=== PATIENT | male | born 1945 | race Caucasian/White ===

== ENCOUNTER 2021-10-07 12:09 | Observation (INO) | payer MEDICARE, OTHER, SELFPAY ==
[2021-10-07] VITALS (7 sets, daily range): BP systolic 132–155; BP diastolic 83–95; PULSE 68–91; RESP 16–18; TEMP 36.6–37; O2SAT 94–99; BMI 31.3; BMI 31.8
--- NOTE | 2021-10-07 13:01 | CRLHL7_ITS ---
For Patients: As a result of the 21st Century Cures Act, medical imaging exams and procedure reports are released immediately into your electronic medical record. You may view this report before your referring provider. If you have questions, please contact your health care provider. Indication: GI bleed, right flank pain Technique: Volumetric multidetector CT images of the abdomen and pelvis were obtained after the administration of intravenous contrast. 98 cc Isovue 370 low osmolar intravenous contrast Comparison: CT abdomen and pelvis April 07, 2018 Findings: There is dependent bibasilar atelectasis with calcified pleural plaques in the left lung base. The liver is mildly enlarged with mild appendix steatosis. There is no focal abnormality. The portal vein is patent. The gallbladder is unremarkable without evidence of radiopaque calculus. There is no significant common biliary ductal dilatation or abrupt cut off. There is a heterogeneous enhancement pattern of the spleen with questionable peripheral nodular enhancement which may represent a splenic hemangioma. There is mild to moderate chronic gastritis change with mild thickening of the gastric antrum. The pancreas is normal in enhancement without significant atrophy. There is demonstration of an exophytic solid mass arising from the left adrenal gland on series 2, image 39 measuring 1.9 centimeters in greatest dimension similar in size from comparison exam. The kidneys demonstrate moderate parapelvic cystic changes of the bilateral collecting systems with demonstration of mild prominence of the right collecting system and a 2.7 millimeter calculus just at the ureteral vesicular junction. There is moderate stool seen throughout the colon with distal colonic diverticulosis without definite evidence of diverticulitis. The appendix is unremarkable. There is no significant mesenteric, retroperitoneal, or pelvic sidewall lymph nodes. The aorta is not aneurysmal with minimal scattered atherosclerotic calcification. Markedly enlarged prostate gland with moderate prostatomegaly commensurate with prostatic hypertrophic changes. There is no free fluid or free air. Postoperative change of the anterior abdominal wall status post ventral hernia repair is appreciated with stable hernia mesh. The lumbar vertebral body heights are grossly maintained with moderate to severe degenerative disc disease with pedicle screws and posterior stabilization fixation changes of the L4 through S1 levels. Impression: Mild right-sided hydronephrosis and hydroureter with demonstration of a 2.7 millimeter calculus at the right ureteral vesicular junction. Moderate sigmoid diverticulosis without definite evidence of diverticulitis. Mild chronic gastritis change. Otherwise, no evidence of acute intra-abdominal abnormality. Please note that all CT scans at this facility use dose modulation, iterative reconstruction, and/or weight-based dosing when appropriate to reduce radiation dose to as low as reasonably achievable. Dictated by Jony Love MD @ 10/07/2021 3:01:41 PM (Electronically Signed)
--- NOTE | 2021-10-07 13:04 | ED.GENADULT ---
[facility] - General Adult General Date Seen: 10/07/21 Chief complaint: GI Bleed Stated complaint: Rectal bleeding Time Seen by Provider: 10/07/21 12:15 Source: patient and family History of Present Illness [facility] narrative: Patient is a 76-year-old male who presents for evaluation of GI bleeding. He has seen on Wednesday. He states that over the weekend, on Wednesday and Wednesday, he had some pain in his right flank which he states was severe. He has a history of kidney stones, and he says that he thought he probably had a kidney stone. He uses sodium bicarbonate for his stones as this is what he has been told to take. Over the course of the weekend, the flank pain dissipated and is now gone. On Wednesday morning, he says he woke up and there was blood on the sheets of his bed. He thought maybe he had passed a stone and that was where the blood came from. This morning, he went to the dentist. While there, he had to have a bowel movement. He went to the bathroom and noted that the toilet was full of blood. Then he went to the gas station, and while there he again had to have a bowel movement. Again the toilet was full of blood. This alarmed him and he decided to come get checked out. His flank pain has not recurred. He has not had any abdominal pain. He does have a history of coronary artery disease and had a stent placed a number of years ago. He denies any current chest pain or shortness of breath. He does tell me that he gets chest pain and shortness of breath with exertion but tells me that this has been evaluated as recently as last year to make sure that it is not cardiac. He says that his test were all reassuring and he has been told that these symptoms are due to his COPD. He has not had any lightheadedness or fainting. He has not had any hematuria. Denies other urinary symptoms. He has not had any fevers or chills. He denies previous history of GI bleeding. He does tell me that he has had a duodenal polyp many years ago which was removed, there apparently complications which required an open laparotomy. He has had difficulties with incisional hernias since then. He has had colonoscopies, most recently he believes at age 75. He has had polyps which were benign. He is unaware of any other problems from his colonoscopies. He does describe an episode of what sounds like C diff colitis previously. He quit smoking greater than 20 years ago. He does not drink alcohol. He does use aleve very frequently but denies any history of gastric ulcers. Related Data Home Medications Medication Instructions Recorded Confirmed albuterol 90 mcg/actuation aerosol 90 mcg inhalation Q4-6H PRN 10/07/21 10/07/21 inhaler allopurinol 300 mg tablet 150 mg PO DAILY 10/07/21 10/07/21 aspirin 81 mg tablet,delayed 81 mg PO DAILY 10/07/21 10/07/21 release atenolol 25 mg tablet 25 mg PO DAILY 10/07/21 10/07/21 atorvastatin 20 mg tablet (Lipitor) 20 mg PO DAILY 10/07/21 10/07/21 fluticasone 250 mcg-salmeterol 50 1 inh inhalation DAILY 10/07/21 10/07/21 mcg/dose blistr powdr for inhalation (Wixela Inhub) sildenafil 100 mg tablet 100 mg PO DAILY PRN 10/07/21 10/07/21 sodium bicarbonate 650 mg tablet 650 mg PO TID 10/07/21 10/07/21 umeclidinium 62.5 mcg/actuation 1 inh inhalation DAILY 10/07/21 10/07/21 blister powder for inhalation (Incruse Ellipta) Allergies Allergy/AdvReac Type Severity Reaction Status Date / Time ciprofloxacin [From Cipro] Allergy Verified 10/07/21 14:24 [facility] Social History Smoking Status: Former smoker What tobacco products do you use: cigarettes Smoking quit date/years: >15 years ago Do you use any of these nicotine containing products: None Second hand tobacco smoke exposure: No How often do you have a drink containing alcohol: 2-4 times a month How many standard drinks containing alcohol do you have on a typical day: 1 or 2 How often do you have six or more drinks on one occasion: Never AUDIT-C Alcohol total score: 2 Non-prescribed substance use: denies use service: Yes Exam Narrative: Exam Narrative: Vital signs as noted above. In general, an alert, well-appearing patient. Head: Normocephalic, atraumatic. Eyes: Pupils are equal reactive. Extraocular movements are full. Conjunctivae are normal. ENT: Mucous membranes are moist. Throat is normal. Neck: Supple without lymphadenopathy. Heart: Regular rate and rhythm. No murmur or rub. Lungs: Clear bilaterally. No increased work of breathing, crackles or wheezes. Abdomen: Soft and nontender. No organomegaly. Extremities: Well perfused. No edema. No calf tenderness. Pulses intact. Neurologic: Patient is alert and oriented to person and place. Speech is fluent. Face is symmetric. Moves all extremities equally. Affect: Normal. Skin: Warm and dry. Well perfused. Const: Vital Signs, click to edit/add: Vital Signs - 24 hr 10/07/21 12:19 10/07/21 14:30 Temperature 98.6 F 98.3 F Pulse Rate [Right Pulse Oximeter] 91 72 Respiratory Rate 18 16 Blood Pressure [Ri ght Upper Arm] 149/86 H 138/83 Pulse Oximetry 95 94 Oxygen Delivery Me thod Room Air Room Air Documenting provider has reviewed patient's vital signs: yes Course Course Hospital Course: Plan at this time is to establish an IV. Maintenance fluids for now given normal vital signs. I think with his flank pain over the weekend, CT scan is warranted. Unclear whether this could have represented an incidental kidney stone. I would doubt aortic pathology given the resolution of this pain and normal vital signs, but I do think this should be evaluated to be safe. He had a bowel movement here which I observed in the toilet. This is dark brown stool, large amount of blood. I tested this, it is mostly bright red blood which is heme positive on testing. I have reviewed his records. Previous colonoscopies do not appear to be through our hospital system. We do not have a good record of his medications, his is going to go home and get those so we have a good list. He does not state that he is on any anticoagulation, aside from a baby aspirin. Specifically asked about Plavix and medications such as Coumadin which he denies. Labs pending at this time. Reevaluation(s) Reevaluation #1: Patient remained hemodynamically stable. Labs overall reassuring. Hemoglobin surprisingly high at 16.2. White blood cell count 11.6. Electrolytes normal. BUN 31. LFTs normal. Troponin less than 0.01. EKG which by my review showed a normal sinus rhythm, ventricular rate of 79 beats per minute. No acute ST segment changes. T-wave flattening throughout. COVID negative. Type and screen drawn. He had a CT scan of the abdomen and pelvis with contrast. By my review, he had cystic changes of both kidneys, he actually does have a kidney stone on the right with hydronephrosis. I did not see any evidence of diverticulitis or inflammation around the colon. Aorta is normal in caliber. Read by Radiology as follows: Impression: Mild right-sided hydronephrosis and hydroureter with demonstration of a 2.7 millimeter calculus at the right ureteral vesicular junction. Moderate sigmoid diverticulosis without definite evidence of diverticulitis. Mild chronic gastritis change. Otherwise, no evidence of acute intra-abdominal abnormality. I have discussed this patient with the hospitalist. Despite his hemoglobin, he has had 3 episodes of fairly significant bright red blood per rectum. Does need to be watched in the hospital with serial hemoglobins, and testing to ascertain location of bleeding if possible. He will be admitted to the hospitalist service. Vital Signs Vital signs: Initial Vital Signs Temperature 98.6 F 10/07/21 12:19 Temperature Source Temporal Artery Scan 10/07/21 12:19 Pulse Rate 91 10/07/21 12:19 Respiratory Rate 18 10/07/21 12:19 Blood Pressure 149/86 H 10/07/21 12:19 Blood Pressure Mean 107 10/07/21 12:19 Blood Pressure Position Sitting 10/07/21 12:19 Pulse Oximetry 95 10/07/21 12:19 Oxygen Delivery Method 10/07/21 12:19 Vital Signs Temperature 98.6 F 10/07/21 12:19 Pulse Rate 91 10/07/21 12:19 Respiratory Rate 18 10/07/21 12:19 Blood Pressure 149/86 H 10/07/21 12:19 Pulse Oximetry 95 10/07/21 12:19 Oxygen Delivery Method 10/07/21 12:19 Temperature 97.8 F 10/07/21 16:25 Pulse Rate 68 10/07/21 16:25 Respiratory Rate 16 10/07/21 16:25 Blood Pressure 132/88 10/07/21 16:25 Pulse Oximetry 95 10/07/21 16:25 Oxygen Delivery Method 10/07/21 16:25 Medical Decision Making Lab Data Labs: Lab Results 10/07/21 10/07/21 10/07/21 Range/Units 13:18 13:18 13:18 WBC 11.65 H (4.50-11.00) K/uL RBC 5.29 (4.30-5.90) m/uL Hgb 16.2 (13.5-17.5) gm/dL Hct 49.1 (37.0-53.0) % MCV 93 (80-100) fL MCH 31 (26-34) pg MCHC 33 (32-36) gm/dL RDW Coeff of [place] 13.0 (11.5-15.5) % Plt Count 200 (140-440) K/uL Neut % (Auto) 82.6 H (42.0-72.0) % Lymph % (Auto) 6.4 L (20-44) % [place] % (Auto) 8.7 (0.0-11.0) % Eos % (Auto) 1.0 (0.0-7.0) % Baso % (Auto) 0.4 (0.0-3.0) % Neut # (Auto) 9.60 H (1.7-7.0) K/uL Lymph # (Auto) 0.70 L (0.90-2.90) K/uL [place] # (Auto) 1.00 H (0.00-0.90) K/UL Eos # (Auto) 0.10 (0.00-0.50) K/uL Baso # (Auto) 0.00 (0.00-0.30) K/uL Abs Immat Gran (auto) 0.11 (0.00-0.30) K/uL INR 0.99 (0.91-1.10) APTT 30 (23-33) Seconds Sodium 140 (135-149) mmol/L Potassium 4.5 (3.6-5.1) mmol/L Chloride 107 (96-114) mmol/L Carbon Dioxide 24 (20-32) mmol/L BUN 31 H (7-30) mg/dL Creatinine 1.1 (0.5-1.5) mg/dL Estimated Creat Clear 53.41 Estimated GFR 70 ml/min Glucose 128 H (60-115) mg/dL Lactate (0.5-1.9) mmol/L Calcium 9.1 (8.4-10.6) mg/dL Total Bilirubin (0.1-1.5) mg/dL Direct Bilirubin (0.0-0.5) mg/dL AST (12-35) U/L ALT (4-50) U/L Alkaline Phosphatase (40-150) U/L Troponin I (0.01-0.04) ng/mL Total Protein (6.0-8.3) g/dL Albumin (3.3-5.0) g/dL SARS-CoV-2 (PCR) (Negative) Blood Type Antibody Screen 10/07/21 10/07/21 10/07/21 Range/Units 13:18 13:18 13:18 WBC (4.50-11.00) K/uL RBC (4.30-5.90) m/uL Hgb (13.5-17.5) gm/dL Hct (37.0-53.0) % MCV (80-100) fL MCH (26-34) pg MCHC (32-36) gm/dL RDW Coeff of [place] (11.5-15.5) % Plt Count (140-440) K/uL Neut % (Auto) (42.0-72.0) % Lymph % (Auto) (20-44) % [place] % (Auto) (0.0-11.0) % Eos % (Auto) (0.0-7.0) % Baso % (Auto) (0.0-3.0) % Neut # (Auto) (1.7-7.0) K/uL Lymph # (Auto) (0.90-2.90) K/uL [place] # (Auto) (0.00-0.90) K/UL Eos # (Auto) (0.00-0.50) K/uL Baso # (Auto) (0.00-0.30) K/uL Abs Immat Gran (auto) (0.00-0.30) K/uL INR (0.91-1.10) APTT (23-33) Seconds Sodium (135-149) mmol/L Potassium (3.6-5.1) mmol/L Chloride (96-114) mmol/L Carbon Dioxide (20-32) mmol/L BUN (7-30) mg/dL Creatinine (0.5-1.5) mg/dL Estimated Creat Clear Estimated GFR ml/min Glucose (60-115) mg/dL Lactate 1.0 (0.5-1.9) mmol/L Calcium (8.4-10.6) mg/dL Total Bilirubin 0.5 (0.1-1.5) mg/dL Direct Bilirubin 0.2 (0.0-0.5) mg/dL AST 34 (12-35) U/L ALT 29 (4-50) U/L Alkaline Phosphatase 91 (40-150) U/L Troponin I < 0.01 L (0.01-0.04) ng/mL Total Protein 7.1 (6.0-8.3) g/dL Albumin 3.9 (3.3-5.0) g/dL SARS-CoV-2 (PCR) (Negative) Blood Type O Positive Antibody Screen NEGATIVE 10/07/21 Range/Units 13:25 WBC (4.50-11.00) K/uL RBC (4.30-5.90) m/uL Hgb (13.5-17.5) gm/dL Hct (37.0-53.0) % MCV (80-100) fL MCH (26-34) pg MCHC (32-36) gm/dL RDW Coeff of [place] (11.5-15.5) % Plt Count (140-440) K/uL Neut % (Auto) (42.0-72.0) % Lymph % (Auto) (20-44) % [place] % (Auto) (0.0-11.0) % Eos % (Auto) (0.0-7.0) % Baso % (Auto) (0.0-3.0) % Neut # (Auto) (1.7-7.0) K/uL Lymph # (Auto) (0.90-2.90) K/uL [place] # (Auto) (0.00-0.90) K/UL Eos # (Auto) (0.00-0.50) K/uL Baso # (Auto) (0.00-0.30) K/uL Abs Immat Gran (auto) (0.00-0.30) K/uL INR (0.91-1.10) APTT (23-33) Seconds Sodium (135-149) mmol/L Potassium (3.6-5.1) mmol/L Chloride (96-114) mmol/L Carbon Dioxide (20-32) mmol/L BUN (7-30) mg/dL Creatinine (0.5-1.5) mg/dL Estimated Creat Clear Estimated GFR ml/min Glucose (60-115) mg/dL Lactate (0.5-1.9) mmol/L Calcium (8.4-10.6) mg/dL Total Bilirubin (0.1-1.5) mg/dL Direct Bilirubin (0.0-0.5) mg/dL AST (12-35) U/L ALT (4-50) U/L Alkaline Phosphatase (40-150) U/L Troponin I (0.01-0.04) ng/mL Total Protein (6.0-8.3) g/dL Albumin (3.3-5.0) g/dL SARS-CoV-2 (PCR) Negative SARS-CoV-2 (Negative) Blood Type Antibody Screen
[2021-10-07 13:27] LABS: Basophils Percent Auto 0.4 % (0.0-3.0); Hematocrit 49.1 % (37.0-53.0); Hemoglobin* 16.2 gm/dL (13.5-17.5); Immature Granulocytes Abs Auto 0.11 K/uL (0.00-0.30); Lymphocytes Percent Auto 6.4 % (20-44); Mean Corpuscular HGB Conc 33 gm/dL (32-36); Mean Corpuscular Hemoglobin 31 pg (26-34); Mean Corpuscular Volume 93 fL (80-100); Monocytes Percent Auto 8.7 % (0.0-11.0); Neutrophils Percent Auto 82.6 % (42.0-72.0); Platelet Count* 200 K/uL (140-440); Red Blood Count 5.29 m/uL (4.30-5.90); White Blood Count* 11.65 K/uL (4.50-11.00)
[2021-10-07 13:35] LABS: Slide Review Reflex No
[2021-10-07 13:45] LABS: INR 0.99 (0.91-1.10); Partial Thromboplastin Time* 30 Seconds (23-33); Prothrombin Time 13.5 Seconds
[2021-10-07] MEDS: 0.9 % SODIUM CHLORIDE 1000 ml 1,000 ML 75 ML IV (13:45)
[2021-10-07 13:50] LABS: Chloride* 107 mmol/L (96-114); Potassium* 4.5 mmol/L (3.6-5.1); Sodium* 140 mmol/L (135-149)
[2021-10-07 13:51] LABS: Albumin* 3.9 g/dL (3.3-5.0)
[2021-10-07 13:53] LABS: Blood Urea Nitrogen* 31 mg/dL (7-30); Carbon Dioxide* 24 mmol/L (20-32); Creatinine* 1.1 mg/dL (0.5-1.5); Est. Creatinine Clearance* 53.41; Estimated Glomerular Filt Rate 70 ml/min; Glucose* 128 mg/dL (60-115)
[2021-10-07 13:54] LABS: Alanine Aminotransferase* 29 U/L (4-50); Alkaline Phosphatase* 91 U/L (40-150); Bilirubin Direct* 0.2 mg/dL (0.0-0.5); Bilirubin Total* 0.5 mg/dL (0.1-1.5); Calcium* 9.1 mg/dL (8.4-10.6); Total Protein* 7.1 g/dL (6.0-8.3)
[2021-10-07 14:06] LABS: Aspartate Amino Transferase* 34 U/L (12-35); Troponin I* < 0.01 ng/mL (0.01-0.04)
[2021-10-07 15:02] LABS: SARS PCR* Negative SARS-CoV-2 (Negative)
--- NOTE | 2021-10-07 16:02 | W.PC.EDHO ---
Primary Language: Preferred Language: Orientation Status: [X] Alert & Oriented [] Slight Confusion [] Known Dx Dementia Transfers By: Independent [] Assist of 1 [] Assist of 2 [] Lift Active Medications Generic Name Dose Route Start Last Admin Trade Name Freq PRN Reason Stop Dose Admin Sodium Chloride 1,000 mls @ 75 mls/hr 10/07/21 13:03 10/07/21 13:45 0.9 % Sodium Chloride 1000 Ml IV 75 mls/hr .[id number] HOSSEIN Administration Description of Symptoms ED Triage Present Problem has been having pain and what he thought was Description kidney stones. has noted some blood in underwear. today, 2 episodes of bright red blood in toilet with BM Female History Patient IV Insertion/Site Date of IV Line Insertion [ 10/07/21 Left Antecubital] Oxygen Administration Pulse Oximetry 94 Pulse Oximetry 95 Oxygen Delivery Method Room Air Oxygen Delivery Method Room Air Cardiac Monitoring EKG Method Bedside
--- NOTE | 2021-10-07 16:59 | ED.NURSE ---
Report to ARTURO Salmeron on MD
[2021-10-07] MEDS: SODIUM BICARBONATE 650 MG TABLET PO (18:14)
[2021-10-07] MEDS: TRANEXAMIC ACID 1,000 MG in 0.9 % SODIUM CHLORIDE 100 ml 100 ML 440 MG IVPB (18:20)
--- NOTE | 2021-10-07 19:14 | PC.NURSE ---
Shift [id number]- Patient arrives to floor at approximately 1745 accompanied by . He denies pain. He ambulates steadily. He has one bloody stool just now. He is tolerating clear liquid diet without issue.
--- NOTE | 2021-10-07 22:13 | PM.IMHP1 ---
Hospitalist- H&P: HPI History of Present Illness Time Seen by Provider: 15:00 Date Seen: 10/07/21 Chief complaint: Rectal bleeding Narrative: Francisco Colbert is a 76 year old man who was in his usual state of health until this past weekend when he had right flank pain reminiscent to him of previous episodes of when he has had symptoms associated with a kidney stone. Pain occurred on Wednesday and Wednesday and subsequently resolved. On Wednesday morning, yesterday, when he awakened he states there was blood on the sheets of his bed. He could not tell if the blood came from his penis or from his anus. He tells me postulated it came from his penis and that it occurred subsequent to him possibly having passed a kidney stone. He did not think any more of it and once again has had no further right flank pain since Wednesday. This morning he had a dentist appointment. While at the dentist office he had a bowel movement. He tells me that the toilet bowl appeared as if though there was bright red blood in there. Denied any abdominal pain in association with this. This alarmed him. He completed what he had to do at the dentist's office and then went to a gas station to put gas into his truck. After filling up his gas tank he had the urge to go to the bathroom. He use the bathroom at the gas station and once again add had bright red blood per rectum. Again denies having had any abdominal pain in association with this. Denies any lightheadedness, orthostasis, change in his baseline level of shortness of breath, no new chest heaviness, pressure, tightness, or pain. Denies fevers, rigors, diaphoresis. Denies diarrhea. Denies any myalgias or arthralgias. Denies any rashes. Patient relates how a number of years ago he had a duodenal diverticulum for which she had surgery and then subsequently had complications from it. He also tells me how he has had colonoscopies most recently at age 75. Has had adenomatous colon polyps in the past. Also was told that he has sigmoid diverticulosis. It is possible that he may have had clostridioides difficile colitis in the past, he is not so certain about this. Review of Systems Status of ROS: Reports: 10 or more systems reviewed and unremarkable except as noted in History and below Narrative: . Lives with his . Retired. Neither his or anyone else he is common to contact has had any similar symptoms. Claims to be taking all his usual medications as prescribed. No recent trauma, travel, injury. No other blood loss of any sort. States his pulmonary status is stable. In general it is becoming more difficult for him to walk long distances. This is been a chronic evolving problem. This is not new. This is related to his advanced COPD status. Doing well on his current COPD regimen. [facility] Medical History Adenoma of left adrenal gland Adenomatous colon polyp Chronic obstructive pulmonary disease Coronary artery disease Diverticulosis of sigmoid colon Duodenal ulcer, perforated Former smoker Gastroesophageal reflux disease H/O Ann's palsy History of gram negative sepsis Hyperglycemia Hyperlipidemia Nocturia Obesity (BMI 30.0-34.9) Prostate cancer Pulmonary nodule Spondylosis Uric acid kidney stone Surgical History History of incisional hernia repair Hx of colonoscopy with polypectomy Status post epidural steroid injection Status post vasectomy Stented coronary artery Family History Mother Diabetes Sister Diabetes High blood pressure Brother Coronary artery disease Father Parkinsons Social History Smoking Status: Former smoker What tobacco products do you use: cigarettes Smoking quit date/years: >15 years ago Do you use any of these nicotine containing products: None Second hand tobacco smoke exposure: No How often do you have a drink containing alcohol: 2-4 times a month How many standard drinks containing alcohol do you have on a typical day: 1 or 2 How often do you have six or more drinks on one occasion: Never AUDIT-C Alcohol total score: 2 Non-prescribed substance use: denies use service: Yes Meds Home Medications and Allergies Home Medications Medication Instructions Recorded Confirmed Type albuterol 90 mcg/actuation aerosol 90 mcg inhalation Q4-6H PRN 10/07/21 10/07/21 History inhaler allopurinol 300 mg tablet 150 mg PO DAILY 10/07/21 10/07/21 History aspirin 81 mg tablet,delayed 81 mg PO DAILY 10/07/21 10/07/21 History release atenolol 25 mg tablet 25 mg PO DAILY 10/07/21 10/07/21 History atorvastatin 20 mg tablet (Lipitor) 20 mg PO DAILY 10/07/21 10/07/21 History fluticasone 250 mcg-salmeterol 50 1 inh inhalation DAILY 10/07/21 10/07/21 History mcg/dose blistr powdr for inhalation (Wixela Inhub) sildenafil 100 mg tablet 100 mg PO DAILY PRN 10/07/21 10/07/21 History sodium bicarbonate 650 mg tablet 650 mg PO TID 10/07/21 10/07/21 History umeclidinium 62.5 mcg/actuation 1 inh inhalation DAILY 10/07/21 10/07/21 History blister powder for inhalation (Incruse Ellipta) Allergies Allergy/AdvReac Type Severity Reaction Status Date / Time ciprofloxacin [From Cipro] Allergy Verified 10/07/21 14:24 Exam Narrative: Exam Narrative: Appears anxious. Articulate, cooperative, friendly. Alert, oriented to person, place, time, situation. Mood and affect are congruent. Symmetrically decreased hearing bilaterally. Normal external auditory canals and tympanic membranes bilaterally. Midline nasal septum. Normal nasal mucosa. Dentition in fair repair. Moist buccal mucosa. No oral lesions. No icterus. No conjunctival injection. Pupils equally round react light accommodation. Extraocular muscles are intact. Vision is grossly normal. Midline trachea. Normal thyroid. No JVD, hepatojugular reflux, or carotid bruits. Neck is supple. No lymphadenopathy in the pre or postauricular chains, anterior or posterior cervical chains, submandibular or submental fossa, supraclavicular or infraclavicular fossa, or axilla bilaterally. Lungs are clear to auscultation. Hypertympanitic chest. Barrel-shaped chest. Mildly prolonged expiratory phase. Not using accessory muscles of respiration. No wheezing, rhonchi, or rales. No CVA tenderness. Heart tones with regular rhythm, normal S1-S2, grade 2/6 systolic murmur left lower sternal border, without gallop or rub. PMI not laterally displaced. Abdomen is obese, active bowel sounds, soft, nontender. No organomegaly or masses. No rebound or guarding. Extremities without edema. Palpable pulses upper and lower extremities. Skin is intact. No rashes, petechiae, cyanosis. Aside from his decreased hearing cranial nerves 3-12 are grossly intact. No tremor, asterixis or ataxia. Independent with transfers, station, and gait. Full range of motion of upper and lower extremities. No swollen joints. Const: Vital Signs, click to edit/add: Vital Signs - 24 hr 10/07/21 12:19 10/07/21 14:30 10/07/21 16:25 Temperature 98.6 F 98.3 F 97.8 F Pulse Rate [Left] Pulse Rate [Right Pulse Oximeter] 91 72 68 Respiratory Rate 18 16 16 Blood Pressure [Le ft Arm] Blood Pressure [Ri ght Upper Arm] 149/86 H 138/83 132/88 Pulse Oximetry 95 94 95 Oxygen Delivery Me thod Room Air Room Air Room Air 10/07/21 17:40 10/07/21 19:00 10/07/21 22:03 Temperature 98.1 F 98.3 F Pulse Rate [Left] 70 72 Pulse Rate [Right Pulse Oximeter] Respiratory Rate 18 18 18 Blood Pressure [Le ft Arm] 149/95 H 152/90 H Blood Pressure [Ri ght Upper Arm] Pulse Oximetry 97 99 Oxygen Delivery Me thod Room Air Room Air Documenting provider has reviewed patient's vital signs: yes Hospitalist - H&P: Result Labs Labs: Short CBC 10/07/21 10/07/21 Range/Units 13:18 17:04 WBC 11.65 H (4.50-11.00) K/uL Hgb 16.2 16.0 (13.5-17.5) gm/dL Hct 49.1 (37.0-53.0) % Plt Count 200 (140-440) K/uL BMP 10/07/21 13:18 Sodium 140 Potassium 4.5 Chloride 107 Carbon Dioxide 24 BUN 31 H Creatinine 1.1 Glucose 128 H Calcium 9.1 Cardiac Enzymes 10/07/21 Range/Units 13:18 Troponin I < 0.01 L (0.01-0.04) ng/mL Liver Function 10/07/21 Range/Units 13:18 Total Bilirubin 0.5 (0.1-1.5) mg/dL Direct Bilirubin 0.2 (0.0-0.5) mg/dL AST 34 (12-35) U/L ALT 29 (4-50) U/L Alkaline Phosphatase 91 (40-150) U/L Albumin 3.9 (3.3-5.0) g/dL Imaging CT scan - abdomen: Attestation: I have reviewed the pertinent imaging results. Radiologist's impression: Mild right-sided hydronephrosis and hydroureter with demonstration of a 2.7 millimeter calculus at the right ureteral vesicular junction. Moderate sigmoid diverticulosis without definite evidence of diverticulitis. Mild chronic gastritis change. Otherwise, no evidence of acute intra-abdominal abnormality. Assessment and Plan Assessment and plan (1) Bright red blood per rectum: Status: Acute (2) Diverticulosis of sigmoid colon: Status: Acute Assessment and Plan: 1. Painless bright red blood per rectum in the setting of known diverticulosis is most likely due to diverticular bleed. (3) Uric acid kidney stone: Status: Acute Assessment and Plan: 1. Patient has longstanding recurrent uric acid kidney stones. Now has a 2.7 mm stone in the right UVJ. Has mild right hydronephrosis in association with this. No longer symptomatic as he was this past Wednesday and Wednesday. 2. IV hydration while in hospital. 3. Continue to use the allopurinol and sodium bicarbonate that he normally uses to treat this. 4. May warrant urology referral, certainly will need follow up with his primary care physician in regard to this. Plan 1. Within about 4 hours the patient has had 3 episodes of bright red blood per rectum that filled the toilet. I recommend to the patient and his that we admit him for observation. They are agreeable. 2. Serial hemoglobins. Monitor orthostatic blood pressures and pulses. 3. I tried to arrange for a nuclear medicine gastrointestinal bleeding scan. I was not able to arrange for this until tomorrow morning at 10:00 a.m.. Will plan on proceeding with this if he continues to bleed. If he stops bleeding then we will need to cancel the test. 4. Ordered a dose of TXA. 5. Consider General surgery consultation if bleeding is persistent. 6. Continue supportive cares for his underlying medical conditions including COPD. 7. Nutritional consultation. 8. Answered the patient's and 's questions to their satisfaction. They are agreeable to above stated plans and recommendations.
[2021-10-08 02:25] VITALS: BP 139/76; PULSE 65; RESP 18; TEMP 36.4; O2SAT 98
[2021-10-08] MEDS: 0.9 % SODIUM CHLORIDE 1000 ml 1,000 ML 75 ML IV (02:35)
--- NOTE | 2021-10-08 06:56 | PC.NURSE ---
shift ntoe: pt indep in room. Calls appropriately. No c/o pain or nausea. 1x to the BR with scant amount blood. 2x to BR with attempts to have a BM, to which pt stated he just passed gas. Tolerating clear liquid diet. BP coming down, 139/76 most recent. Other VSS and WNL.
[2021-10-08 07:00] VITALS: BP 143/83; PULSE 75; TEMP 36.9; O2SAT 98
[2021-10-08 07:10] LABS: HCO3 VBG 30 mmol/L (21-28); PCO2 VBG 55 mmHG (40-50); PO2 VBG 28.1 mmHG (25-47); pH VBG 7.345 (7.32-7.43)
[2021-10-08 07:18] LABS: Platelet Count* 191 K/uL (140-440)
[2021-10-08 07:44] LABS: Chloride* 107 mmol/L (96-114)
[2021-10-08 07:45] LABS: Albumin* 3.7 g/dL (3.3-5.0); Potassium* 4.7 mmol/L (3.6-5.1); Sodium* 140 mmol/L (135-149)
[2021-10-08 07:48] LABS: Blood Urea Nitrogen* 22 mg/dL (7-30); Calcium* 8.6 mg/dL (8.4-10.6); Carbon Dioxide* 29 mmol/L (20-32); Estimated Glomerular Filt Rate 78 ml/min; Glucose* 99 mg/dL (60-115); Phosphorus* 3.4 mg/dL (2.5-4.5)
[2021-10-08 08:58] LABS: Hemoglobin* 15.6 gm/dL (13.5-17.5)
[2021-10-08] MEDS: atenoloL 25 MG TABLET PO (09:30)
[2021-10-08] MEDS: ATORVASTATIN 10 MG TABLET 20 MG PO (09:30)
[2021-10-08] MEDS: allopurinoL 300 MG TABLET 150 MG PO (09:30)
[2021-10-08] MEDS: SODIUM BICARBONATE 650 MG TABLET PO ×2 (10:35→17:52)
[2021-10-08 11:00] VITALS: BP 159/91; PULSE 65; RESP 18; TEMP 36.6; O2SAT 94
--- NOTE | 2021-10-08 12:58 | P.IMPN_ITS ---
Progress Note: A&P Assessment and plan (1) Diverticulosis of sigmoid colon: Status: Acute (2) Bright red blood per rectum: Status: Acute Plan Patient's nuclear med scan performed this morning, negative for any acute bleeding noted. Chano has known history of hemorrhoids, which also could be contributing to bleed, but given age and known history of diverticulosis, recommend 1 more overnight for observation to ensure stability of vital signs and hemoglobin. Patient and are agreeable. Discussed with general surgery; they recommend outpatient colonoscopy upon discharge if patient remains clinically stable throughout stay. Reviewed outpatient records, patient's last colonoscopy was in [address] Gupta; will arrange repeat scope as an outpatient. Time Spent With Patient Total time spent: 35, > 50% in updates to patient and , chart review, and coordination of care. Subjective Date Seen: 10/08/21 Interval history: Chano is feeling well today. He had 1 more episode of hematochezia prior to his nuclear med scan. He specifically denies lightheadedness, dizziness, chest pain, or dyspnea. His vital signs and hemoglobin have remained stable. Exam Narrative: Exam Narrative: GEN: Alert and oriented, answering questions appropriately HEENT: Normal external ears, EOMIs bilaterally, no scleral icterus CV: RRR, No concerning murmurs, rubs, or gallops R: LCTA bilaterally without concerning wheezing, rales, or rhonchi Abdomen: Protuberant, soft, no tenderness to palpation Ext: wwp, no concerning edema Skin: No concerning skin lesions or rashes on exposed skin Neuro: Nonfocal Psych: Appropriate Const: Vital Signs, click to edit/add: Vital Signs - 24 hr 10/07/21 14:30 10/07/21 16:25 10/07/21 17:40 Temperature 98.3 F 97.8 F 98.1 F Pulse Rate [Left] 70 Pulse Rate [Right Pulse Oximeter] 72 68 Respiratory Rate 16 16 18 Blood Pressure [Le ft Arm] 149/95 H Blood Pressure [Ri ght Upper Arm] 138/83 132/88 Pulse Oximetry 94 95 97 Oxygen Delivery Me thod Room Air Room Air Room Air 10/07/21 19:00 10/07/21 22:03 10/07/21 22:43 Temperature 98.3 F 98.5 F Pulse Rate [Left] 72 73 Pulse Rate [Right Pulse Oximeter] Respiratory Rate 18 18 18 Blood Pressure [Le ft Arm] 152/90 H 155/86 H Blood Pressure [Ri ght Upper Arm] Pulse Oximetry 99 97 Oxygen Delivery Me thod Room Air Room Air 10/08/21 02:25 Temperature 97.6 F Pulse Rate [Left] 65 Pulse Rate [Right Pulse Oximeter] Respiratory Rate 18 Blood Pressure [Le ft Arm] 139/76 Blood Pressure [Ri ght Upper Arm] Pulse Oximetry 98 Oxygen Delivery Me thod Room Air Labs Labs: Laboratory Results - last 24 hr 10/07/21 10/07/21 10/07/21 13:18 13:18 13:18 WBC 11.65 H RBC 5.29 Hgb 16.2 Hct 49.1 MCV 93 MCH 31 MCHC 33 RDW Coeff of [place] 13.0 Plt Count 200 Neut % (Auto) 82.6 H Lymph % (Auto) 6.4 L [place] % (Auto) 8.7 Eos % (Auto) 1.0 Baso % (Auto) 0.4 Neut # (Auto) 9.60 H Lymph # (Auto) 0.70 L [place] # (Auto) 1.00 H Eos # (Auto) 0.10 Baso # (Auto) 0.00 Abs Immat Gran (auto) 0.11 INR 0.99 APTT 30 VBG pH VBG pCO2 VBG pO2 VBG HCO3 Sodium 140 Potassium 4.5 Chloride 107 Carbon Dioxide 24 BUN 31 H Creatinine 1.1 Estimated Creat Clear 53.41 Estimated GFR 70 Glucose 128 H Lactate Calcium 9.1 Phosphorus Total Bilirubin Direct Bilirubin AST ALT Alkaline Phosphatase Troponin I Total Protein Albumin SARS-CoV-2 (PCR) Blood Type Antibody Screen 10/07/21 10/07/21 10/07/21 13:18 13:18 13:18 WBC RBC Hgb Hct MCV MCH MCHC RDW Coeff of [place] Plt Count Neut % (Auto) Lymph % (Auto) [place] % (Auto) Eos % (Auto) Baso % (Auto) Neut # (Auto) Lymph # (Auto) [place] # (Auto) Eos # (Auto) Baso # (Auto) Abs Immat Gran (auto) INR APTT VBG pH VBG pCO2 VBG pO2 VBG HCO3 Sodium Potassium Chloride Carbon Dioxide BUN Creatinine Estimated Creat Clear Estimated GFR Glucose Lactate 1.0 Calcium Phosphorus Total Bilirubin 0.5 Direct Bilirubin 0.2 AST 34 ALT 29 Alkaline Phosphatase 91 Troponin I < 0.01 L Total Protein 7.1 Albumin 3.9 SARS-CoV-2 (PCR) Blood Type O Positive Antibody Screen NEGATIVE 10/07/21 10/07/21 10/08/21 13:25 17:04 06:11 WBC RBC Hgb 16.0 Hct MCV MCH MCHC RDW Coeff of [place] Plt Count 191 Neut % (Auto) Lymph % (Auto) [place] % (Auto) Eos % (Auto) Baso % (Auto) Neut # (Auto) Lymph # (Auto) [place] # (Auto) Eos # (Auto) Baso # (Auto) Abs Immat Gran (auto) INR APTT VBG pH VBG pCO2 VBG pO2 VBG HCO3 Sodium Potassium Chloride Carbon Dioxide BUN Creatinine Estimated Creat Clear Estimated GFR Glucose Lactate Calcium Phosphorus Total Bilirubin Direct Bilirubin AST ALT Alkaline Phosphatase Troponin I Total Protein Albumin SARS-CoV-2 (PCR) Negative SARS-CoV-2 Blood Type Antibody Screen 10/08/21 10/08/21 10/08/21 06:11 06:11 06:11 WBC RBC Hgb 15.6 Hct MCV MCH MCHC RDW Coeff of [place] Plt Count Neut % (Auto) Lymph % (Auto) [place] % (Auto) Eos % (Auto) Baso % (Auto) Neut # (Auto) Lymph # (Auto) [place] # (Auto) Eos # (Auto) Baso # (Auto) Abs Immat Gran (auto) INR APTT VBG pH 7.345 VBG pCO2 55 H VBG pO2 28.1 VBG HCO3 30 H Sodium 140 Potassium 4.7 Chloride 107 Carbon Dioxide 29 BUN 22 Creatinine 1.0 Estimated Creat Clear 60.80 Estimated GFR 78 Glucose 99 Lactate Calcium 8.6 Phosphorus 3.4 Total Bilirubin Direct Bilirubin AST ALT Alkaline Phosphatase Troponin I Total Protein Albumin 3.7 SARS-CoV-2 (PCR) Blood Type Antibody Screen
[2021-10-08 14:27] LABS: Hemoglobin* 15.4 gm/dL (13.5-17.5)
--- NOTE | 2021-10-08 14:34 | NUTR.NU ---
RDN with MD consult for diverticulosis. Patient agreed to receive diet education without designated caregiver present, and reported he would share educational materials with her at a later date. Patient was provided diet education on a low fiber diet. Discussed foods to include and foods to avoid until MD recommends advancing to high fiber diet. Education also provided on gradually increasing fiber and following a high fiber diet (25-35 grams/day) long-term.? Verbal and written information as well as sample menus provided on both diets from AND NCM.? Patient verbalized understanding.? RDN's contact information was provided and patient was encouraged to contact RDN with questions.
[2021-10-08 15:00] VITALS: BP 132/82; PULSE 60; RESP 18; TEMP 36.5; O2SAT 94
--- NOTE | 2021-10-08 15:05 | PC.NURSE ---
Pt on CL diet this am, no bkfst tray, am meds with sips of water. Pt has denied pain for the entire shift. IV fluids discontinued for nuclear medication test at request of [facility] avionics electronics technician. Dr. Melendrez discussed results of this test with patient and his Honey, verbal order to d/c IVF. Pt encouraged to drink fluids and advanced to regular diet. Plan repeat Hgb level at 1400, advance to regular diet and monitor for bleeding overnite. Plan outpatient colonoscopy exam with Dr. Gupta on Wednesday. Eupneic and in NAD. Continue plan of care. Report to oncoming shift RN.
--- NOTE | 2021-10-08 16:40 | CRLHL7_ITS ---
For Patients: As a result of the 21st Century Cures Act, medical imaging exams and procedure reports are released immediately into your electronic medical record. You may view this report before your referring provider. If you have questions, please contact your health care provider. HISTORY: 76-year-old male. Bright red blood per rectum. Known diverticulosis. TECHNIQUE: 22.5 millicuries of [id number] was utilized for red blood cell labeling utilizing the ultra Tag kit. Images of the abdomen and pelvis were obtained in the anterior projection for 60 minutes. FINDINGS: There is physiologic uptake of activity by the blood pool. A small amount of activity accumulates in the urinary bladder over the course of imaging. There is no evidence of active gastrointestinal hemorrhage over the 60 minutes of imaging. IMPRESSION: There is no evidence of active gastrointestinal hemorrhage over the 60 minutes of imaging. Dictated by Ran Wright MD @ 10/08/2021 12:11:07 PM (Electronically Signed)
--- NOTE | 2021-10-08 18:32 | PC.NURSE ---
End of Shift Note: I have only taken care of this patient for 4 hours. In this time he is sitting up in the chair in his room enjoying to sunshine thru the window. No complaints of pain and no stools noted on my shift. Will continue to monitor he is up indep in room.
[2021-10-08 19:00] VITALS: BP 140/87; PULSE 74; RESP 18; TEMP 37.2; O2SAT 96
[2021-10-08] MEDS: SODIUM CHLORIDE 0.9 % (FLUSH) 10 ML SYRINGE 5 ML IVF (20:11)
[2021-10-08 22:58] VITALS: BP 133/85; PULSE 71; RESP 18; TEMP 36.9; O2SAT 97
[2021-10-09 02:18] VITALS: BP 130/97; PULSE 61; RESP 18; TEMP 36.6; O2SAT 97
--- NOTE | 2021-10-09 06:06 | PC.NURSE ---
pleasant and cooperative. Calls appropriately. Indep in room. Pt states no BM, occasionally passing gas. Pt states scant amount of blood on tissue after attempting BM. VSS. Afebrile.
[2021-10-09 07:00] VITALS: PULSE 61; RESP 18
[2021-10-09 07:40] LABS: Basophils Absolute Auto 0.07 K/uL (0.00-0.30); Basophils Percent Auto 0.7 % (0.0-3.0); Eosinophils Absolute Auto 0.37 K/uL (0.00-0.50); Eosinophils Percent Auto 3.8 % (0.0-7.0); Hematocrit 44.5 % (37.0-53.0); Hemoglobin* 14.8 gm/dL (13.5-17.5); Immature Granulocytes Abs Auto 0.08 K/uL (0.00-0.30); Lymphocytes Percent Auto 8.4 % (20-44); Mean Corpuscular HGB Conc 33 gm/dL (32-36); Mean Corpuscular Hemoglobin 31 pg (26-34); Mean Corpuscular Volume 94 fL (80-100); Monocytes Percent Auto 11.3 % (0.0-11.0); Platelet Count* 177 K/uL (140-440); RDW Coefficient of Variation % 12.8 % (11.5-15.5); Red Blood Count 4.75 m/uL (4.30-5.90); White Blood Count* 9.72 K/uL (4.50-11.00)
[2021-10-09 07:55] LABS: Chloride* 105 mmol/L (96-114); Potassium* 4.2 mmol/L (3.6-5.1); Slide Review Reflex No; Sodium* 139 mmol/L (135-149)
[2021-10-09 07:58] LABS: Blood Urea Nitrogen* 20 mg/dL (7-30); Carbon Dioxide* 27 mmol/L (20-32); Creatinine* 1.1 mg/dL (0.5-1.5); Est. Creatinine Clearance* 55.27; Estimated Glomerular Filt Rate 70 ml/min; Glucose* 89 mg/dL (60-115)
[2021-10-09 07:59] LABS: Calcium* 8.7 mg/dL (8.4-10.6)
--- NOTE | 2021-10-09 08:01 | P.DS_ITS ---
DS: Providers Provider Date Seen: 10/09/21 Date of admission: 10/07/21 15:58 Primary care physician: Gifty Franco DO Admitting Clinician: Get Avila MD Consults: 10/07/21 16:44 Consult to Nutrition [CONS] Routine Comment: Reason for consult:: Miscellaneous Comment: diverticulosis, bright red blood per rectum Attending Physician on discharge: Mirella Melendrez MD Date of Discharge: 10/09/21 DS: Diagnosis Discharge Diagnosis (1) Diverticulosis of sigmoid colon: Status: Acute (2) Bright red blood per rectum: Status: Acute DS: Summary Hospital Course Hospital Course: 76-year-old male with known external hemorrhoids and diverticulosis, admitted for BRBPR on 10/07. CT scan performed in the emergency room was negative for any acute findings, although did note a kidney stone (patient's history of this). Nuclear med scan performed on hospital day 1 given concern for diverticular bleed; this was negative. Patient did not have any further bright red blood per rectum during last 24 hours of stay, although did note bright red blood on toilet paper when wiping on day of discharge. He has known external hemorrhoids and diverticulosis; last colonoscopy was with Dr. Gupta of Gastroenterology in 2019. Patient's vital signs, hemoglobin, and BUN remained stable throughout stay. He was able to tolerate p.o. intake over the last 24 hours of hospitalization. Given clinical stability and reassuring findings, patient is discharged home with on hospital day 2. He will see his PCP, Dr. Franco, and Dr. Gupta of Gastroenterology for follow- up. I have asked him to hold his aspirin for the rest of the week, no other medications were changed during stay. Status at Discharge Functional status at discharge: independent ambulation Overall status at discharge: patient is back to baseline Time Spent with Patient Time attestation: Total time spent providing and/or coordinating discharge services: Time spent: Greater than 30 minutes Exam Narrative: Exam Narrative: GEN: Alert and oriented, answering questions appropriately HEENT: Normal external ears, EOMIs bilaterally, no scleral icterus CV: RRR, soft systolic murmur without radiation or concerning features R: LCTA bilaterally without concerning wheezing, rales, or rhonchi Abdomen: Soft and nontender, no distension Ext: wwp, no concerning edema Skin: No concerning skin lesions or rashes on exposed skin Neuro: Nonfocal Psych: Appropriate Const: Vital Signs, click to edit/add: Vital Signs - 24 hr 10/08/21 11:00 10/08/21 15:00 10/08/21 15:00 Temperature 98 F 97.7 F Pulse Rate [Left] 65 60 60 Respiratory Rate 18 18 18 Blood Pressure [Le ft Arm] 159/91 H 132/82 Pulse Oximetry 94 94 Oxygen Delivery Me thod Room Air Room Air 10/08/21 19:00 10/08/21 22:58 10/08/21 22:58 Temperature 98.9 F 98.4 F Pulse Rate [Left] 74 71 71 Respiratory Rate 18 18 18 Blood Pressure [Le ft Arm] 140/87 H 133/85 Pulse Oximetry 96 97 Oxygen Delivery Me thod Room Air Room Air 10/09/21 02:18 Temperature 97.8 F Pulse Rate [Left] 61 Respiratory Rate 18 Blood Pressure [Le ft Arm] 130/97 H Pulse Oximetry 97 Oxygen Delivery Me thod Room Air DS: Data Data Completed and Pending Labs on day of discharge: Labs from last 24 hours 10/09/21 10/09/21 10/08/21 06:21 06:21 14:21 WBC 9.72 RBC 4.75 Hgb 14.8 15.4 Hct 44.5 MCV 94 MCH 31 MCHC 33 RDW Coeff of [place] 12.8 Plt Count 177 Neut % (Auto) 75.0 H Lymph % (Auto) 8.4 L [place] % (Auto) 11.3 H Eos % (Auto) 3.8 Baso % (Auto) 0.7 Neut # (Auto) 7.30 H Lymph # (Auto) 0.80 L [place] # (Auto) 1.10 H Eos # (Auto) 0.37 Baso # (Auto) 0.07 Abs Immat Gran (auto) 0.08 Sodium 139 Potassium 4.2 Chloride 105 Carbon Dioxide 27 BUN 20 Creatinine 1.1 Estimated Creat Clear 55.27 Estimated GFR 70 Glucose 89 Calcium 8.7 10/08/21 06:11 WBC RBC Hgb 15.6 Hct MCV MCH MCHC RDW Coeff of [place] Plt Count Neut % (Auto) Lymph % (Auto) [place] % (Auto) Eos % (Auto) Baso % (Auto) Neut # (Auto) Lymph # (Auto) [place] # (Auto) Eos # (Auto) Baso # (Auto) Abs Immat Gran (auto) Sodium Potassium Chloride Carbon Dioxide BUN Creatinine Estimated Creat Clear Estimated GFR Glucose Calcium Discharge Plan Discharge Disposition: Home, Self-Care Date of Admission: 10/07/21 15:58 Attending Provider on Discharge: Mirella Melendrez Primary Care Provider: Gifty Franco Condition: Improved Anticipated Discharge Date/Time: 10/09/21 09:00 Discharge Medications: Continued atorvastatin [Lipitor] 20 mg tablet 20 mg PO DAILY sodium bicarbonate 650 mg tablet 650 mg PO TID atenolol 25 mg tablet 25 mg PO DAILY fluticasone propion-salmeterol [Wixela Inhub] 250-50 mcg/dose blister with device 1 inh inhalation DAILY albuterol 90 mcg/actuation aerosol 90 mcg inhalation Q4-6H PRN Incruse Ellipta 62.5 mcg/actuation blister with device 1 inh inhalation DAILY allopurinol 300 mg tablet 150 mg PO DAILY sildenafil 100 mg tablet 100 mg PO DAILY PRN Rx Instructions: administer 30 minutes to 4 hours before activity Held aspirin 81 mg tablet,delayed release (DR/EC) 81 mg PO DAILY Hold Instructions: Resume on 10/19/21. Can restart on 10/19 Discharge Orders: Discharge Order (Routine); Ordered 10/09/21 Ordered By: Mirella Melendrez Patient Education: Gastrointestinal Bleeding (DC), Kidney Stones (DC), Diverticulosis Diet (GEN) Activity Restrictions/Additional Instructions: MAX of 2 Snickers Ice Cream Bars/day. See Dr. Gupta for followup, let us know if symptoms return or you have dizziness/lightheadedness. Activity Level: Activity as Tolerated Discharge Diet: Regular Follow Up Appointments: John Gupta MD [Staff Physician] - 11/07/21 2:30 pm ([facility] is working on fitting you in sooner for a follow-up with Dr. Gupta. [facility] staff member will call patient or for an update.) Gifty Franco, [Primary Care Provider] - Forms: [email or web address] Info Instructions
--- NOTE | 2021-10-09 08:40 | PC.NURSE ---
Patient was anxious to discharge to home. No head to toe done as worked on paperwork to get him home.
--- NOTE | 2021-10-09 08:42 | PC.NURSE ---
no new procedures or medications to teach
== END 2021-10-09 08:46 | disposition home or self-care (01) ==
LOC: ED 13:09 → MEDSURG 15:59
PROVIDERS: Family Medicine; Admitting Provider Internal Medicine; Emergency Provider Emergency Medicine; PCP Family Medicine; Visit Provider Internal Medicine
DX: K57.30 Diverticulosis of large intestine without perforation or abscess without bleeding (principal); K62.5 Hemorrhage of anus and rectum; N13.2 Hydronephrosis with renal and ureteral calculous obstruction; K64.4 Residual hemorrhoidal skin tags; E78.5 Hyperlipidemia, unspecified; I10 Essential (primary) hypertension; J44.9 Chronic obstructive pulmonary disease, unspecified; D58.2 Other hemoglobinopathies; Z20.822 Contact with and (suspected) exposure to COVID-19; Z98.52 Vasectomy status; Z79.01 Long term (current) use of anticoagulants; Z79.82 Long term (current) use of aspirin; Z87.891 Personal history of nicotine dependence
CPT/HCPCS: 36415; 74177; 78278; 80048; 80069; 80076; 82803; 83605; 84484; 85018; 85025; 85049; 85610; 85730; 86850; 86900; 86901; 87635; 93005; 96361; 96374; 96375; 99284; 99285; A9270; A9512; A9560; G0378; G0379; J1644; J7030; Q9967

== ENCOUNTER 2022-03-26 07:54 | Outpatient (CLI) | payer MEDICARE, OTHER, SELFPAY | END 2022-03-26 07:55 | disposition home or self-care (01) | PROVIDERS: PCP Family Medicine; Visit Provider Nurse Practitioner Family | DX: E11.621 Type 2 diabetes mellitus with foot ulcer (principal); L97.522 Non-pressure chronic ulcer of other part of left foot with fat layer exposed; L97.428 Non-pressure chronic ulcer of left heel and midfoot with other specified severity; L97.528 Non-pressure chronic ulcer of other part of left foot with other specified severity; L97.518 Non-pressure chronic ulcer of other part of right foot with other specified severity; I87.311 Chronic venous hypertension (idiopathic) with ulcer of right lower extremity; L97.818 Non-pressure chronic ulcer of other part of right lower leg with other specified severity | CPT/HCPCS: 11042; 97597; 97602; 99213 ==

== ENCOUNTER 2022-04-02 08:25 | Outpatient (CLI) | payer MEDICARE, OTHER, SELFPAY | END 2022-04-02 08:26 | disposition home or self-care (01) | PROVIDERS: PCP Family Medicine; Visit Provider Nurse Practitioner Family | DX: E11.621 Type 2 diabetes mellitus with foot ulcer (principal); L97.522 Non-pressure chronic ulcer of other part of left foot with fat layer exposed; I89.0 Lymphedema, not elsewhere classified; I87.2 Venous insufficiency (chronic) (peripheral) | CPT/HCPCS: 97597 ==

== ENCOUNTER 2022-04-09 13:07 | Outpatient (CLI) | payer MEDICARE, OTHER, SELFPAY | END 2022-04-09 13:08 | disposition home or self-care (01) | LOC: WOUND 13:07 | PROVIDERS: PCP Family Medicine; Visit Provider Nurse Practitioner Family | DX: E11.621 Type 2 diabetes mellitus with foot ulcer (principal); L97.522 Non-pressure chronic ulcer of other part of left foot with fat layer exposed; I89.0 Lymphedema, not elsewhere classified; I87.2 Venous insufficiency (chronic) (peripheral) | CPT/HCPCS: 97597 ==

== ENCOUNTER 2022-04-23 09:56 | Outpatient (CLI) | payer MEDICARE, OTHER, SELFPAY | END 2022-04-23 09:57 | disposition home or self-care (01) | LOC: WOUND 09:56 | PROVIDERS: PCP Family Medicine; Visit Provider Nurse Practitioner Family | DX: E11.621 Type 2 diabetes mellitus with foot ulcer (principal); L97.522 Non-pressure chronic ulcer of other part of left foot with fat layer exposed; I89.0 Lymphedema, not elsewhere classified | CPT/HCPCS: 99212 ==

== ENCOUNTER 2022-08-23 09:06 | Emergency (ER) | payer MEDICARE, OTHER, SELFPAY ==
[2022-08-23 09:10] VITALS: BP 139/83; PULSE 71; RESP 18; TEMP 36.1; O2SAT 93; BMI 32.2
--- NOTE | 2022-08-23 09:24 | ED.GENADULT ---
HPI - General Adult General Time Seen by Provider: 09:24 Date Seen: 08/23/22 Chief complaint: Urogenital Problems, Male Stated complaint: blood in urine Time Seen by Provider: 08/23/22 09:07 Source: patient Mode of arrival: ambulatory Limitations: no limitations History of Present Illness HPI narrative: Patient is a very pleasant 77 year white male has had history of kidney stones, history of prostate cancer that is being monitored with PSAs who presents with hematuria since yesterday. He had little bit of left lateral abdominal discomfort yesterday, he thought he might have passed a kidney stone and then today's seen some blood. He is not lightheaded, dizzy, is pulses acceptable. He has had no chest pain, breathing problem or other concern. He is on baby aspirin daily Related Data Home Medications Medication Instructions Recorded Confirmed albuterol 90 mcg/actuation aerosol 90 mcg inhalation Q4-6H PRN 10/07/21 08/23/22 inhaler allopurinol 300 mg tablet 150 mg PO DAILY 10/07/21 08/23/22 aspirin 81 mg tablet,delayed 81 mg PO DAILY 10/07/21 05/26/22 release atenolol 25 mg tablet 25 mg PO DAILY 10/07/21 08/23/22 atorvastatin 20 mg tablet (Lipitor) 20 mg PO DAILY 10/07/21 08/23/22 fluticasone 250 mcg-salmeterol 50 1 inh inhalation DAILY 10/07/21 08/23/22 mcg/dose blistr powdr for inhalation (Wixela Inhub) sildenafil 100 mg tablet 100 mg PO DAILY PRN 10/07/21 08/23/22 sodium bicarbonate 650 mg tablet 650 mg PO TID 10/07/21 08/23/22 umeclidinium 62.5 mcg/actuation 1 inh inhalation DAILY 10/07/21 08/23/22 blister powder for inhalation (Incruse Ellipta) blood sugar diagnostic (True #10 ea 05/26/22 05/26/22 Metrix Glucose Test Strip) Previous Rx's Medication Instructions Recorded amoxicillin 500 mg-potassium 1 tab PO BID #14 tabs 08/23/22 clavulanate 125 mg tablet (Augmentin) Allergies Allergy/AdvReac Type Severity Reaction Status Date / Time ciprofloxacin [From Cipro] Allergy Verified 05/26/22 09:08 Review of Systems Status of ROS: Reports: 6 or more systems reviewed and unremarkable except as noted in History and below [facility] Medical History Frostbite of foot, left ?T33.822A - Superficial frostbite of left foot, initial encounter (ICD-10) ?X31.XXXA - Exposure to excessive natural cold, initial encounter (ICD-10) Spinal stenosis at L4-L5 level ?M48.061 - Spinal stenosis, lumbar region without neurogenic claudication (ICD-10) Former smoker ?Z87.891 - Personal history of nicotine dependence (ICD-10) Duodenal ulcer, perforated ?K26.5 - Chronic or unspecified duodenal ulcer with perforation (ICD-10) Gastroesophageal reflux disease ?K21.9 - Gastro-esophageal reflux disease without esophagitis (ICD-10) Hyperlipidemia ?E78.5 - Hyperlipidemia, unspecified (ICD-10) Nocturia ?R35.1 - Nocturia (ICD-10) Spondylosis ?M47.9 - Spondylosis, unspecified (ICD-10) Adenoma of left adrenal gland ?D35.02 - Benign neoplasm of left adrenal gland (ICD-10) Hyperglycemia ?R73.9 - Hyperglycemia, unspecified (ICD-10) History of gram negative sepsis ?Z86.19 - Personal history of other infectious and parasitic diseases (ICD-10) Pulmonary nodule ?R91.1 - Solitary pulmonary nodule (ICD-10) Adenomatous colon polyp ?D12.6 - Benign neoplasm of colon, unspecified (ICD-10) Uric acid kidney stone ?N20.0 - Calculus of kidney (ICD-10) Prostate cancer ?C61 - Malignant neoplasm of prostate (ICD-10) H/O Ann's palsy ?Z86.69 - Personal history of other diseases of the nervous system and sense organs (ICD-10) Obesity (BMI 30.0-34.9) ?E66.9 - Obesity, unspecified (ICD-10) Chronic obstructive pulmonary disease ?J44.9 - Chronic obstructive pulmonary disease, unspecified (ICD-10) Coronary artery disease ?I25.10 - Atherosclerotic heart disease of [place] coronary artery without angina pectoris (ICD-10) Diverticulosis of sigmoid colon ?K57.30 - Diverticulosis of large intestine without perforation or abscess without bleeding (ICD-10) Surgical History (Updated 05/26/22 @ 09:12 by Faiza Rasheed ~ [facility], [facility]) History of back surgery (~2015) ?Z98.890 - Other specified postprocedural states (ICD-10) Varicose vein of leg ?I83.90 - Asymptomatic varicose veins of unspecified lower extremity (ICD-10) Status post vasectomy ?Z98.52 - Vasectomy status (ICD-10) History of incisional hernia repair ?Z98.890 - Other specified postprocedural states (ICD-10) ?Z87.19 - Personal history of other diseases of the digestive system (ICD-10) Hx of colonoscopy with polypectomy ?Z98.890 - Other specified postprocedural states (ICD-10) ?Z86.010 - Personal history of colonic polyps (ICD-10) Status post epidural steroid injection ?Z92.241 - Personal history of systemic steroid therapy (ICD-10) Stented coronary artery ?Z95.5 - Presence of coronary angioplasty implant and graft (ICD-10) Family History Mother Diabetes Sister Diabetes High blood pressure Brother Coronary artery disease Father Parkinsons Social History (Updated 05/26/22 @ 09:07 by Faiza Rasheed ~ [facility], [facility]) Narrative: -Honey Smoking Status: Former smoker What tobacco products do you use: cigarettes Smoking quit date/years: >15 years ago Do you use any of these nicotine containing products: None Second hand tobacco smoke exposure: No How often do you have a drink containing alcohol: 2-4 times a month How many standard drinks containing alcohol do you have on a typical day: 1 or 2 How often do you have six or more drinks on one occasion: Never AUDIT-C Alcohol total score: 2 Non-prescribed substance use: denies use Are you now , , , , never or living with a partner: Social isolation score (0-1 are the most socially isolated patients): 1 service: Yes Exam Narrative: Exam Narrative: Objective: Vital signs are unremarkable In general is in no apparent distress he is alert orient x3 No cyanosis, no neurologic changes, pulses regular, abdomen obese benign nontender Negative CVA tenderness Const: Vital Signs, click to edit/add: Vital Signs - 24 hr 08/23/22 09:10 Temperature 97 F L Pulse Rate [Pulse Oximeter] 71 Respiratory Rate 18 Blood Pressure [Ri ght Upper Arm] 139/83 Pulse Oximetry 93 Oxygen Delivery Me thod Room Air Course Vital Signs Vital signs: Initial Vital Signs Temperature 97 F L 08/23/22 09:10 Temperature Source Temporal Artery Scan 08/23/22 09:10 Pulse Rate 71 08/23/22 09:10 Respiratory Rate 18 08/23/22 09:10 Blood Pressure 139/83 08/23/22 09:10 Blood Pressure Mean 101 08/23/22 09:10 Blood Pressure Position Supine 08/23/22 09:10 Pulse Oximetry 93 08/23/22 09:10 Oxygen Delivery Method Room Air 08/23/22 09:10 Vital Signs Temperature 97 F L 08/23/22 09:10 Pulse Rate 71 08/23/22 09:10 Respiratory Rate 18 08/23/22 09:10 Blood Pressure 139/83 08/23/22 09:10 Pulse Oximetry 93 08/23/22 09:10 Oxygen Delivery Method Room Air 08/23/22 09:10 Temperature 97 F L 08/23/22 09:10 Pulse Rate 71 08/23/22 09:10 Respiratory Rate 18 08/23/22 09:10 Blood Pressure 139/83 08/23/22 09:10 Pulse Oximetry 93 08/23/22 09:10 Oxygen Delivery Method Room Air 08/23/22 09:10 Medical Decision Making MDM Narrative Medical decision making narrative: Patient is a 77 year white male with history of kidney stones history of prostate cancer the being monitored, and hematuria with some dysuria and a little bit more frequency. I suspect he has a urinary tract infection. He is hemodynamically stable. He has had baby aspirin that he has used that he can that he takes preventatively that he could stop for few days which I would recommend. Will give Augmentin orally now and then Augmentin 500 mg b.i.d. x7 days. Will run a urine and urine culture. Given he has no pain or discomfort now I do not think imaging would be appropriate. Would recommend treatment as above and follow-up with primary care in 2-3 days certainly sooner change concerns worsening. Lab Data Labs: Lab Results 08/23/22 Range/Units 09:08 Urine Color Red A (Yellow) Urine Appearance Cloudy A (Clear) Urine pH 6.5 (5.0-8.5) Ur Specific [place] 1.020 (1.000-1.030) Urine Protein 3+ A (Negative) Urine Glucose (UA) Negative (Negative) Urine Ketones 1+ A (Negative) Urine Blood 3+ A (Negative) Urine Nitrite Positive A (Negative) Urine Bilirubin 2+ A (Negative) Urine Urobilinogen 2.0 A (0.2-1.0) Ur Leukocyte Esterase 3+ A (Negative) Urine RBC >100 A (0-2) Urine WBC 10-25 A (0-5) Ur Squamous Epith Cells Few (None-Few) Urine Bacteria Few A (None) Discharge Plan Discharge Clinical Impression: Hematuria, Prostate cancer Patient Disposition: Home w/ Parent or Adult Condition: Stable Additional Instructions: Light activity, stop your baby aspirin for least a week, Augmentin 2 times a day for 7 days, recheck with your regular doctor problems or concerns, if continued bleeding or lightheadedness or dizziness return to the ED. also return to ED if you have abdominal pain consistent with a kidney stone Activity Level: Light activity Discharge Diet: Regular Prescriptions: New amoxicillin-pot clavulanate [Augmentin] 500-125 mg tablet 1 tab PO BID Qty: 14 0RF No Action (DME) True Metrix Glucose Test Strip Strip See Rx Instructions .ROUTE .MEDSUPPLY Qty: 10 Patient Comments: TEST DAILY TO TWICE DAILY Rx Instructions: As directed atorvastatin [Lipitor] 20 mg tablet 20 mg PO DAILY sodium bicarbonate 650 mg tablet 650 mg PO TID atenolol 25 mg tablet 25 mg PO DAILY fluticasone propion-salmeterol [Wixela Inhub] 250-50 mcg/dose blister with device 1 inh inhalation DAILY albuterol 90 mcg/actuation aerosol 90 mcg inhalation Q4-6H PRN Incruse Ellipta 62.5 mcg/actuation blister with device 1 inh inhalation DAILY aspirin 81 mg tablet,delayed release (DR/EC) 81 mg PO DAILY Hold Instructions: Resume on 10/19/21. Can restart on 10/19 allopurinol 300 mg tablet 150 mg PO DAILY sildenafil 100 mg tablet 100 mg PO DAILY PRN Rx Instructions: administer 30 minutes to 4 hours before activity Follow Up/Referrals: Gifty Franco DO [Primary Care Provider] - Stand Alone Forms: [facility] Info Instructions
[2022-08-23 09:32] LABS: Appearance Urine Cloudy (Clear); Bilirubin Urine 2+ (Negative); Blood Urine 3+ (Negative); Color Urine Red (Yellow); Glucose Urine Negative (Negative); Ketones Urine 1+ (Negative); Leukocyte Esterase Urine 3+ (Negative); Nitrite Urine Positive (Negative); Protein Urine 3+ (Negative); pH Urine 6.5 (5.0-8.5)
[2022-08-23 09:49] LABS: Bacteria Urine Few; RBC Urine >100 (0-2); Squamous Epithelial Cell Urine Few (None-Few)
[2022-08-23] MEDS: AMOXICILLIN/CLAVULANATE 500 mg/125 mg TABLET PO (09:55)
== END 2022-08-23 09:56 | disposition home or self-care (01) ==
LOC: ED 09:34
PROVIDERS: Emergency Provider Family Medicine; PCP Family Medicine
DX: R31.9 Hematuria, unspecified (principal); C61 Malignant neoplasm of prostate
CPT/HCPCS: 81001; 87086; 87186; 99283; A9270

== ENCOUNTER 2025-01-26 09:03 | Outpatient (CLI) | payer MEDICARE, BC, SELFPAY ==
--- NOTE | 2025-01-26 10:37 | P.ANES_ITS ---
Anesthesia Charges Start Date/Time Anesthesia Start Date: 01/26/25 Anesthesia Start Time: 10:10 Stop Date/Time Anesthesia Stop Date: 01/26/25 Anesthesia Stop Time: 10:36 Coding CPT Codes CPT Codes: ANES LWR INTST NDSC NOS - 85654 ([id number]) P3 - PATIENT W/SEVERE SYS DISEASE, QK - METAL SHAPING MACHINE OPERATOR 2-4 CNCRNT ANES PROC, QX - LICENSED ARCHITECT SVC W/ MD MED DIRECTION
--- NOTE | 2025-01-26 10:37 | W.ANESCHARGE ---
Anesthesia Charges Start Date/Time Anesthesia Start Date: 01/26/25 Anesthesia Start Time: 10:10 Stop Date/Time Anesthesia Stop Date: 01/26/25 Anesthesia Stop Time: 10:36 Coding CPT Codes CPT Codes: ANES LWR INTST NDSC NOS - 03152 ([id number]) P3 - PATIENT W/SEVERE SYS DISEASE, QK - VICE PRESIDENT OF BUSINESS DEVELOPMENT 2-4 CNCRNT ANES PROC, QX - HEAVY TRUCK MECHANIC SVC W/ MD MED DIRECTION
--- NOTE | 2025-01-26 11:04 | P.ANES_ITS ---
Anesthesia Charges Start Date/Time Anesthesia Start Date: 01/26/25 Anesthesia Start Time: 10:10 Stop Date/Time Anesthesia Stop Date: 01/26/25 Anesthesia Stop Time: 10:36 Summary Extremes of Age - Over 70 or under 1: MDA Coding CPT Codes CPT Codes: ANES LWR INTST NDSC NOS - 81663 ([id number]) QK - MECHANICAL MAINTENANCE INSTRUCTOR 2-4 CNCRNT ANES PROC, QX - DIE FINISHER FORGING SVC W/ MD MED DIRECTION, P3 - PATIENT W/SEVERE SYS DISEASE Additional Codes: Summary - Extremes of Age - Over 70 or under 1: MDA ([id number])
== END 2025-01-26 09:04 | disposition home or self-care (01) ==
LOC: OP CLINIC 09:04
PROVIDERS: PCP Family Medicine; Visit Provider Internal Medicine Gastroenterology
DX: D12.3 Benign neoplasm of transverse colon (principal); K57.30 Diverticulosis of large intestine without perforation or abscess without bleeding; Z86.0101 Personal history of adenomatous and serrated colon polyps
CPT/HCPCS: 00811; 45385; 88305; 99100; J2704